=== PATIENT | male | born 1995 | race Caucasian/White ===

== ENCOUNTER 2018-05-19 13:14 | Emergency (ER) | payer MEDICAID, OTHER ==
[2018-05-19 13:14] VITALS: BMI 26.5
[2018-05-19 13:47] VITALS: BP 114/72; PULSE 89; RESP 18; TEMP 99.1; O2SAT 100
--- NOTE | 2018-05-19 14:43 | C.PDOC ---
Time Seen by Provider: 05/19/18 14:24 Chief Complaint (Nursing): Abdominal Pain Past Medical History Vital Signs: Last Vital Signs Temp 99.1 F 05/19/18 13:43 Pulse 89 05/19/18 13:43 Resp 18 05/19/18 13:43 BP 114/72 05/19/18 13:43 Pulse Ox 100 05/19/18 13:43 - Medical History PMH: Bipolar Disorder (PER MOTHER, NON-COMPLIANT W/ MIDCATION) - Social History Hx Tobacco Use: Yes Hx Alcohol Use: Yes (marijuana user daily) Hx Substance Use: No - Immunization History Hx Tetanus Toxoid Vaccination: Yes Hx Influenza Vaccination: Yes ED Course And Treatment O2 Sat by Pulse Oximetry: 100 Disposition - Disposition
--- NOTE | 2018-05-19 14:46 | C.PDOC ---
History Of Present Illness Patient is a 22 year old male who presents to the ER with complaint of vomiting 2-3 times today. Patients states he was woken from sleep with nausea and vomited at approximately 5AM. Patient states he vomited food contents with some bilious fluid. He states approximately two hours prior to ER presentation he ate a giordano, egg & cheese croissant sandwich. He has been tolerating fluids and denies further episodes of vomiting. He denies currently feeling nauseous. He denies diarrhea, fever or chills. He denies sick contacts. He denies eating at any restaurants. He reports he lives with his mother who does not have similar symptoms. Time Seen by Provider: 05/19/18 14:24 Chief Complaint (Nursing): Abdominal Pain History Per: Patient History/Exam Limitations: no limitations Onset/Duration Of Symptoms: Hrs Current Symptoms Are (Timing): Better Severity: Mild Pain Scale Rating Of: 3 Quality Of Discomfort: Dull Associated Symptoms: denies: Fever, Chills, Nausea, Vomiting, Diarrhea Exacerbating Factors: None Alleviating Factors: Rest Last Bowel Movement: Today Past Medical History Vital Signs: Last Vital Signs Temp 99.1 F 05/19/18 13:43 Pulse 89 05/19/18 13:43 Resp 18 05/19/18 13:43 BP 114/72 05/19/18 13:43 Pulse Ox 100 05/19/18 13:43 - Medical History PMH: Bipolar Disorder (PER MOTHER, NON-COMPLIANT W/ MIDCATION) Family History: States: No Known Family Hx - Social History Hx Tobacco Use: Yes Hx Alcohol Use: Yes (marijuana user daily) Hx Substance Use: No - Immunization History Hx Tetanus Toxoid Vaccination: Yes Hx Influenza Vaccination: Yes Review Of Systems Constitutional: Negative for: Fever, Chills Eyes: Negative for: Pain ENT: Negative for: Ear Pain Cardiovascular: Negative for: Chest Pain Respiratory: Negative for: Cough, Shortness of Breath Gastrointestinal: Positive for: Vomiting. Negative for: Nausea, Diarrhea Genitourinary: Negative for: Dysuria Neurological: Negative for: Weakness Physical Exam - Physical Exam Appears: Well, Non-toxic, No Acute Distress Skin: Normal Color, Warm, Dry Head: Atraumatic, Normacephalic Eye(s): bilateral: EOMI Nose: Normal Oral Mucosa: Moist Tongue: Normal Appearing Lips: Normal Appearing Teeth: Normal Dentition Throat: Normal, No Erythema, No Exudate Neck: Normal ROM Chest: No Tenderness Cardiovascular: Rhythm Regular Respiratory: Normal Breath Sounds Gastrointestinal/Abdominal: Bowel Sounds, Soft, No Tenderness, No Organomegaly, No Distention, No Guarding, No Rebound Back: Normal Inspection Neurological/Psych: Normal Speech, Normal Cognition ED Course And Treatment O2 Sat by Pulse Oximetry: 100 Medical Decision Making Medical Decision Making: Patient tolerating diet, advised to maintain hydration with gatorade, pedialyte, or coconut water. Disposition - Disposition Referrals: [facility] [Outside] [facility] [Outside] [facility] [Outside] Disposition: HOME/ ROUTINE Disposition Time: 14:54 Condition: GOOD Additional Instructions: bland diet for 3 days. maintain hydration with gatorade, coconut water, pedialyte. Instructions: Nausea and Vomiting, Adult (DC) Forms: [facility] (Tristanian) - Clinical Impression Clinical Impression: Viral gastroenteritis, Vomiting - PA / HUMAN RESOURCES TECHNICIAN / Resident Statement MD/DO has reviewed & agrees with the documentation as recorded. MD/DO has examined the patient and agrees with the treatment plan.
== END 2018-05-19 15:41 | disposition home or self-care (01) ==
LOC: C.ER 13:14
DX: A08.4 Viral intestinal infection, unspecified (principal)